=== PATIENT | female | born 1990 | race African-American/Black ===

== ENCOUNTER 2024-07-22 04:07 | Emergency (ER) | payer MEDICAID, SELFPAY ==
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
[2024-07-22 04:37] VITALS: BP 136/90; PULSE 110; RESP 16; TEMP 37; O2SAT 98; BMI 46.6
[2024-07-22 04:55] VITALS: BP 136/90; PULSE 98; RESP 18; TEMP 37; O2SAT 98
== END 2024-07-22 05:09 | disposition home or self-care (01) ==
PROVIDERS: Emergency Provider Emergency Medicine
DX: F10.920 Alcohol use, unspecified with intoxication, uncomplicated (principal); Y90.9 Presence of alcohol in blood, level not specified
CPT/HCPCS: 99282; 99283

== ENCOUNTER 2024-07-22 22:01 | Emergency (ER) | payer MEDICAID, SELFPAY ==
[2024-07-22 22:04] VITALS: BP 121/81; PULSE 100; RESP 16; TEMP 36.2; O2SAT 97; BMI 46.2
--- NOTE | 2024-07-22 22:43 | PC.NURSE ---
Addendum entered by Shadia Carrera LPN 07/22/24 22:46: pt reports UTD of tetanus from facial lac Original Note: pt presents to dept with c/o lifted right great toenail. toenail sustained a previous injury with a metal door- yesterday pt struck toenail again causing it to lift from the nail bed. no active bleeding at this time. CSM in tact. pt reports cleaning to affected area with warm water and peroxide.
--- NOTE | 2024-07-22 23:38 | ED.GENADULT ---
HPI - General Adult General Chief complaint: General Medical Stated complaint: broken toe nail Time Seen by Provider: 07/22/24 23:38 Source: patient Mode of arrival: ambulatory Limitations: no limitations History of Present Illness ED Provider: Dr. Alessandro Barnard HPI narrative: 34-year-old female with no significant past medical history who presents emergency department for evaluation of injury to her right great toenail. She states approximately 1 month ago she injured the nail and caused it to slightly lift. She states that prior to coming to emergency department she opened the door onto or right great toe which caused her toenail to partially avulse. She states that she is able to walk but does have had pain with any movement of her toenail. There is bleeding from 1 of the toenail as well. Related Data Previous Rx's ?Medication ?Instructions ?Recorded bacitracin 500 unit/gram topical 1 appl topical BID 7 days #28 grams 07/23/24 ointment Allergies Allergy/AdvReac Type Severity Reaction Status Date / Time No Known Allergies Allergy Verified 07/22/24 22:06 [facility] Past Medical History Medical History (Updated 07/23/24 @ 00:52 by Alessandro Barnard MD) Alcohol intoxication Social History Social History Advance Directives: No Advance Directives Information Provided: No Do you have a plan to hurt others: No Plan Patient : No Physical Exam ED Vital Signs: Vital Signs - 24 hr 07/22/24 22:04 07/23/24 01:20 Temperature 97.2 F 98.2 F Pulse Rate 100 77 Respiratory Rate 16 18 Blood Pressure 121/81 120/68 Pulse Oximetry 97 99 Oxygen Delivery Method Room Air BMI result Body Mass Index 46.2 Vital signs were normal exam: Right foot: The patient's right great toenail is partially avulsed but still attached. There is bleeding underneath the nail. The toe is neurovascularly intact. Medications Administered Discontinued Medications Generic Name Dose Route Start Last Admin Trade Name Freq PRN Reason Stop Dose Admin Lidocaine HCl 5 ml 07/23/24 00:03 07/23/24 00:33 Lidocaine Hcl 1 % Mpf 5 Ml Vial INFILTRATI 07/23/24 00:04 5 ml ONCE STA Administration Lidocaine HCl 5 ml 07/23/24 00:03 07/23/24 00:33 Lidocaine Hcl 1 % Mpf 5 Ml Vial INFILTRATI 07/23/24 00:04 5 ml ONCE STA Administration Procedures Procedure Narrative Procedure Narrative: Right great toenail removal: The toenail is partially avulsed but still attached. I did discuss removal procedure with the patient and she gave me informed verbal consent. The right great toenail was prepped with Betadine and then using 8 cc of 1% lidocaine she was given a digital block to the toe. After 10 minutes the patient had good anesthesia of the toe. I then applied a hemostat to the toe and with gentle pressure was able to easily remove the toenail. The patient experienced no pain. There was slight bleeding of the nailbed with no injury of the nailbed. The nail bed was dressed with bacitracin and a nonstick dressing was applied. Medical Decision Making Medical Decision Making MDM Narrative: 34-year-old female with no significant past medical history who presents to the emergency department for evaluation of injury to the right great toenail. Vital signs were normal. Physical examination did reveal a partially avulsed toenail never required removal. Patient was given a digital block and I was able to easily remove the toenail. There was bleeding from the nail bed. Nail bed was covered with bacitracin and nonstick dressing. Patient was advised to take Tylenol and ibuprofen for pain. She was given printed and verbal instructions and discharged home. Admission/Observation Consideration of admission/observation: Escalation of care including admission/observation considered ( No) Prescription Management I considered prescription management with: Antibiotic ( bacitracin antibiotic ointment) Discharge Plan Discharge Clinical Impression: Injury of great toenail Patient Disposition: Home, Self-Care Instructions: Nail Removal (ED) Additional Instructions: Your toenail was removed and you have some slight bleeding in the nailbed. Apply bacitracin twice a day for 2 weeks Keep the nail bed covered with gauze until the bleeding stops, this might take 2-3 days. Watch for signs of infection which include redness, swelling, drainage of pus, red streaks going away from the toe Take ibuprofen 200 mg pills, 2 pills every 6 hours as needed for pain or fever. Take Tylenol (acetaminophen) 500 mg pills, 2 pills every 6 hours as needed for pain or fever. Follow-up with your doctor in 2 days. Please return to the emergency department if your symptoms get worse or if you develop any symptoms that are concerning to you. Prescriptions: New bacitracin 500 unit/gram ointment 1 appl topical BID 7 Days Qty: 28 0RF Interventions: ED Discharge Assessment Last Done: 07/23/24 01:20 Discharge Date/Time: 07/23/24 01:20 Print Language: Haitian
[2024-07-23] MEDS: Lidocaine HCl 1 % MPF 5 ML VIAL INFILTRATI ×2 (00:33)
[2024-07-23 01:20] VITALS: BP 120/68; PULSE 77; RESP 18; TEMP 36.8; O2SAT 99
== END 2024-07-23 01:20 | disposition home or self-care (01) ==
PROVIDERS: Emergency Provider Emergency Medicine Emergency Medical Services
DX: S91.201A Unspecified open wound of right great toe with damage to nail, initial encounter (principal); W20.8XXA Other cause of strike by thrown, projected or falling object, initial encounter; M79.674 Pain in right toe(s); Y93.89 Activity, other specified; Y92.9 Unspecified place or not applicable; Y99.9 Unspecified external cause status
CPT/HCPCS: 11730; 99284

== ENCOUNTER 2025-08-08 23:30 | Emergency (ER) | payer MEDICAID, SELFPAY ==
--- OUTSIDE RECORDS SUMMARY | 2016-04-03 10:45 | XMS_ITS | Continuity of Care Document ---
Author Organization [facility] vices Address [address] [place] [address] Phone Care Team Providers Care Professor Of Rhetoric Name Role Phone Unavailable Unavailable Unavailable Allergies, [...] Copied on Encounter OFFICE/OUTPA TIENT VISIT, EST [facility], [address] [place], [address], [place] tel:[phone] [facility] Test (chief complaint) [id number] edna nov 21 (chief complaint) Encounter for test, result positive No Information OFFICE/OUTPA TIENT VISIT, [facility], [address] [place], [address], [place] tel:[phone] [facility] Test (chief complaint) fatique (chief complaint) STD testing (chief complaint) Encounter for test, result negativeEncounter for STD screeningFatigue, unspecified type No Information OFFICE/OUTPA TIENT VISIT, [facility], [address] [place], [address], [place] tel:[phone] [facility] Adult Medicine Throwing Up/Dizzy since Thursday (chief complaint) Encntr for general adult medical exam w/o abnormal findingsVomiting, nausea presence unspecified, unspecified intactability, vomiting of unspecified typeEncounter for test, result negative No Information Family History Family Member Type Diagnosis Age At Onset No Information Payers Payer name Insurance type Covered libertarian ID Minnie salcedo(s) PARMINDER Aragon [id number] Social History Type Description Quantity Date Captured [...] LMP. EDNA 11/21/16. Noticed some spotting on 03/17/[id number] - [place]ivered [place]09/07/2006: full term without [id number]/03/2007: full term SVDwithout complications03/26/2010: full term without complicationsPMHx: Asthma, obesityPSHx: deniesMedications: AlbuterolAll: NKDADenies toxic habits. [id number] edna nov 21 (chief complaint) Reason For Referral Reason For Referral No Information History Of Present Illness Encounter Date Complaint History Of Prese nt Illness Test LMP was 02/15/20. Context: confirmed by home test on 03/29/2016. The patient had 3 previous pregnancies. Associated symptoms include breast tenderness, spotting. Pertinent negatives include pelvic pain. Additional information: Regular monthly menses. EGW 6w6d by LMP. EDNA 11/21/16. Noticed some spotting on 03/17/[id number] - [place]ivered [place]09/07/2006: full term without [id number]/03/2007: full term without complications03/26/2010: full term without complicationsPMHx: Asthma, obesityPSHx: deniesMedications: AlbuterolAll: NKDADenies toxic habits. [id number] edna nov 21 evie States has hx of anemia. Has had recent viral GI bug. Asking for blood work. Reviewed that she will need to f/u with Adult medicine. Will order labs today. STD testing Asking for HIV t est Test Context: Pregnan cy not confirmed by [...] contraception as she may want to conceive.. Throwing Up/Dizzy si nce Thursday (comments) 26 [...] this letter for her but instructed her external relations manager to check the contents of the bottle [...] the office today7) Please follow up with Inclusion Paraeducator for spotting during your period if this is not normal for you. Related to Vomiting, nausea presence unspecified, unspecified intactability, vomiting of unspecified type Assessments Type Assessment Date assessment Encounter for test, re sult positive Mental Status Date Cognitive Assessment Orientation - [place] ed to time, place, person, situation. Patient Care Teams Name Effective Dates (start - stop) Status Members No Information
--- NOTE | ~2025-08-08 | XR_ITS ---
CLINICAL HISTORY: left great toe injury 3 view left great toe Comparison: None provided Findings: Bones intact. No dislocations. No significant arthritic change. No erosions. No radiopaque foreign body. IMPRESSION: 1. No acute findings This document has been electronically signed by: Baldo Wolf MD on 08/09/2025 01:42:16
[2025-08-08 23:34] VITALS: BP 128/62; PULSE 95; RESP 19; TEMP 36.6; O2SAT 100; BMI 46.7
--- NOTE | 2025-08-09 00:04 | ED.LOWEXIN ---
HPI - Extremity Injury (Lower) General Chief Complaint: Extremity Injury, Lower Stated Complaint: stubbed toe Time Seen by Provider: 08/09/25 00:03 Source: patient Mode of arrival: ambulatory Limitations: no limitations History of Present Illness ED Provider: Pedro Pablo ROA HPI Narrative: The patient is a 35-year-old female presenting to the ED for evaluation of left great toe pain after she stubbed it on a leg of a dining room table yesterday. The patient reports pain with walking and palpation, denies distal paresthesias. The patient noted today that the toenail is slightly lifted and presents to the ED for evaluation. Patient reports she has had a similar injury to the right great toe previously which required removal of the toenail. The patient denies other injury. Related Data Previous Rx's ?Medication ?Instructions ?Recorded bacitracin 500 unit/gram topical 1 appl topical BID 7 days #28 grams 07/23/24 ointment clobetasol 0.05 % topical ointment 1 appl topical BID 2 weeks #30 08/09/25 grams Allergies Allergy/AdvReac Type Severity Reaction Status Date / Time No Known Allergies Allergy Verified 08/08/25 23:36 Review of Systems Review of Systems: Yes all other systems are reviewed and are negative PMFSH Past Medical History Medical History (Updated 08/09/25 @ 00:31 by Pedro Pablo Guzmán PA-C) Alcohol intoxication Social History Social History Advance Directives: No Advance Directives Information Provided: Yes Do you have a plan to hurt others: No Plan Physical Exam Vital Signs: Vital Signs: Last Vital Signs Temp 97.9 F 08/08/25 23:34 Pulse 95 08/08/25 23:34 Resp 19 08/08/25 23:34 BP 128/62 08/08/25 23:34 Pulse Ox 100 08/08/25 23:34 O2 Del Method Room Air 08/08/25 23:34 BMI result Body Mass Index 46.7 CONSTITUTIONAL: The patient appears non-toxic, well nourished and in no acute distress. Vital signs as documented. HEAD: Atraumatic, normocephalic. EYES: EOMs grossly intact, pupils equal, conjunctiva clear, no exudate. ENT: Nares patent, no discharge. Airway patent, no audible stridor, visible mucosa is pink and moist without noted lesions. NECK: trachea is midline, no obvious masses or gross abnormalities. CHEST: Symmetric movement, normal appearance. LUNGS: Non-labored work of breathing. CARDIAC: No evidence of hypoperfusion. ABDOMEN: Nondistended, no obvious injury. : Deferred. EXTREMITIES: There is contusion and swelling noted to the left great toe with slight lifting of the great toenail and mild disruption of the nail from the lateral cuticle, no obvious subungual hematoma. Distal CSM is intact, left great toe is tender to palpation without associated crepitus. Moves all other extremities spontaneously without reported pain. No other obvious injury or deformity noted. NEURO: Alert and oriented x3, CN II-XII appear grossly intact. Cerebellar Functioning grossly intact. Speech clear and appropriate. SKIN: Warm, dry, color appropriate. No rashes or lesions noted. Medications Administered Discontinued Medications Generic Name Dose Route Start Last Admin Trade Name Freq PRN Reason Stop Dose Admin Lidocaine HCl 5 ml 08/09/25 00:09 08/09/25 00:21 Lidocaine Hcl 1 % Mpf 5 Ml Vial INFILTRATI 08/09/25 00:10 5 ml ONCE ONE Administration Medical Decision Making Medical Decision Making MDM Narrative: 12:20 AM 08/09/2025 (Rosalina ROA): The patient is a 35-year-old female presenting to the ED for evaluation of left great toe pain after she stubbed it on a leg of a dining room table yesterday. The patient reports pain with walking and palpation, denies distal paresthesias. The patient noted today that the toenail is slightly lifted and presents to the ED for evaluation. Patient reports she has had a similar injury to the right great toe previously which required removal of the toenail. The patient denies other injury. Patient's exam reveals slight lifting of the great toe with some mild disruption of the lateral aspect of the cuticle. Distal CSM is intact. Mild contusion, no other injury, no subungual hematoma. The patient will be treated with a digital block, we will place nail back under the lateral cuticle and apply Dermabond to secure in place. Of note patient is also requesting a refill of her clobetasol for eczema, we will provide. Admission/Observation Consideration of admission/observation: Escalation of care including admission/observation considered Discharge Plan Discharge Clinical Impression: Fracture of toe, Avulsed toenail Patient Disposition: Home, Self-Care Instructions: Toe Fracture (ED), Nail Avulsion (ED) Additional Instructions: Thank you for choosing [facility] Emergency Department for your care today. At this time there is no indication for admission to the hospital or continued ED observation, and it is safe to discharge you home. Your stubbed toe from yesterday resulted in a fracture of your toe. Please wear the postoperative shoe provided for increased comfort and follow up with the Orthopedics office for re-evaluation. Your injury also resulted in an avulsion of the toenail, the toenail was placed back under the cuticle today and secured with the glue. While the nail may still eventually fall off, the replacement and securement of the nail within the cuticle will allow the cuticle to remain open and increase the likelihood of normal regrowth of new nail. The glue will wear off with normal showering in the next 5-7 days, it does not require removal. You may take alternating (staggered) doses of ibuprofen 600mg and Tylenol 1000mg every 4 hours as needed for any additional pain. Please rest and elevate the injured area, and apply ice for 20 minutes every hour. Please also follow up with your primary care physician for re-evaluation, additional management of your symptoms, and continued preventative care. If you do not have a primary care physician, please call the [facility] at [phone] to establish a new primary care physician. While waiting to establish your new primary care physician, you can call our Walk[facility]in [facility] at [phone] for non-emergency needs. Please return to the emergency department if you develop a severe or sudden change in your symptoms, a fever over 100.4 that does not improve with Tylenol or Ibuprofen, recurrent vomiting, or any other new or worsening symptoms or concerns. Prescriptions: New clobetasol 0.05 % ointment 1 appl topical BID 14 Days Qty: 30 0RF No Action bacitracin 500 unit/gram ointment 1 appl topical BID 7 Days Qty: 28 0RF Referrals: [facility] [place] [facility] [Provider Group] Clinical Impression: Fracture of toe; Avulsed toenail Print Language: Jordanian
[2025-08-09] MEDS: Lidocaine HCl 1 % MPF 5 ML VIAL INFILTRATI (00:21)
--- OUTSIDE RECORDS SUMMARY | 2025-08-09 00:37 | XMS_ITS | Clinical Summary ---
Author Organization [address] Address [address] [place] [address] Care Team Providers Care Test Inspection Engineer Name Role Phone Glenn Alvarado DO Primary Care Provider [phone] Allergies Active Allergy Reactions Criticality Noted Date Comments Apple Anaphylaxis,Tongue Swelling,Wheezing High 11/22/2017 Most fresh fruits cause similar reactions Banana Tongue Swelling,Wheezing High 11/22/2017 Most fresh fruits cause similar reactions Medications ibuprofen (ADVIL,MOTRIN) 600 MG tablet Take 1 tablet (600 mg total) by mouth every 6 (six) hours as needed.. 30 tablet 00 8 Active ipratropium-alb uterol (DUO-NEB) 0.5 mg-3 mg(2.5 mg base)/3 mL nebulizer solution Take 3 mLs by nebulization every 6 (six) hours as needed for Wheezing 75 mL 9 Active inhalational spacing device (AEROCHAMBER) inhaler Use as directed. 1 each 9 Active albuterol sulfate (PROAIR HFA) 90 mcg/actuation HFA aerosol inhaler Inhale 2 puffs into the lungs every 4 (four) hours as needed for wheezing or shortness of breath. 1 Inhaler 1 0 Active albuterol (PROVENTIL, VENTOLIN) 2.5 mg /3 mL (0.083 %) nebulizer solution Take 3 mLs by nebulization every 4 (four) hours as needed for shortness of breath or wheezing. 75 mL 1 0 Active budesonide-form oteroL (SYMBICORT) 80-4.5 mcg/actuation HFA aerosol inhaler Inhale 2 puffs into the lungs 2 (two) times daily. 1 Inhaler 1 0 Active triamcinolone (KENALOG) 0.5 % cream Apply topically 3 (three) times daily. Do not use on face or genital area 15 g 1 Active Active Problems Problem Noted Date Diagnosed Date Alcohol abuse with intoxication, uncomplicated 1 Cocaine abuse 09/07/2021 Passive suicidal ideations-NOW RESOLVED 09/07/20 21 History of posttraumatic stress disorder (PTSD) 09/07/2021 History of depression 09/07/2021 12/26/2017 Bacterial vaginosis 12/17/2017 Genital herpes simplex 12/17/2017 Anxiety 11/22/2017 Asthma 11/22/2017 Heartburn 11/22/2017 Herpes simplex 11/22/2017 Patient currently 10/29/2017 Chronic eczema 01/25/2016 Transient insomnia 01/23/2016 Screening examination for pulmonary tuberculosis 01/23/2016 Chlamydial infection 04/23/2014 Blood in urine 08/23/2011 Immunization counseling 11/23/2007 Immunizations Immunization Administration Dates Next Due TB Screening (PPD/Quantiferon) 01/23/2016 Family History Medical History Relation Name Comments No Known Problems Father No Known Problems Mother Relation Name Status Comments Brother Alive Daughter Alive Father Alive Maternal Grandmother Alive Mother Alive Son Alive Social History Tobacco Use Types Packs/Day Years Used Date Smoking Tobacco: Never Smokeless Tobacco: Never Alcohol Use Standard Drinks/Week Comments Yes 2 (1 standard drink = 0.6 oz pur e alcohol) Education Answer Date Recorded What is the highest level of school you have completed or the highest degree you have received? High school graduate 09/07/2021 Comments No Sex and Gender Information Value Date Recorded Sex Assigned at Female 03/03/2021 1:38 PM EDT Legal Sex Female 9:36 AM EST Gender Identity Female 03/03/2021 1:38 PM EDT Sexual Orientation Straight 03/03/2021 1: 38 PM EDT Occupation Industry Job Start Date Job End Date unemployed Not on file Not on file Not on file Last Filed Vital Signs Vital Sign Reading Time Taken Comments Blood Pressure 143/82 03/04/2025 2:34 PM EDT Pulse 92 03/04/2025 2:34 PM EDT Temperature 36.4 C (97.6 F) 03/04/2025 2:34 PM EDT Respiratory Rate 18 03/04/2025 2:34 PM EDT Oxygen Saturation 100% 03/04/2025 2:34 PM EDT Inhaled Oxygen Concentration - - Weight 108.9 kg (240 lb) 03/04/2025 2:32 PM EDT Height 154.9 cm (5' 1 ) 03/03/2021 1:33 AM EDT Body Mass Index 45.35 03/03/2021 1:33 AM EDT Plan of Treatment Health Maintenance Due Date Last Done Comments Hepatitis C screening 2007 Pneumococcal Vaccine (2 - 49 years) (1 of 2 - PCV) 02/13/2008 Covid-19 vaccine series (2 - 2024- season) 2025 11/27/2021 Influenza vaccine 07/24/2025 10/29/2017 Cervical cancer screening 01/16/2026 01/16/2021 Tetanus adult (Td q 10,TDAP once) 10/29/2027 10/29/2017 RSV Immunization (1 - 1-dose 75+ series) 02/13/2064 HIV screening Completed 11/03/2017, 11/03/2017 Meningococcal B Vaccine Aged Out No l onger eligible based on patient's age to complete this topic Meningococcal Vaccine Aged Out No memo kameron eligible based on patient's age to complete this topic Goals Goal Patient Goal Type Associated Problems Recent Progress Patient-Stated? Author Cut out extra servings Diet No Michelle Wilkerson RD DSME: REDUCING RISKS Lifestyle No Michelle Wilkerson RD Note: Get preventative help 4: Sure I can Learn to have a safe 4: Sure I can Follow meal plan 4: Sure I can DSME: MONITORING Result Component No Michelle Wilkerson RD Note: Check my blood sugar more often 4: Sure I can Miss fewer blood sugar checks 4: Sure I can Do my blood sugar checks on time more often 4: Sure I can Procedures Procedure Name Priority Date/Time Associated Diagnosis Comments HIV-1/HIV-2 ANTIBODY/ANTIGEN SCREEN W/REFLEX ( GH LMW [facility]) Routine 11/03/2017 1:11 PM EST Encounter for supervision of normal in second trimester, unspecified from Last 3 Months or Most Recently Relevant to Health Maintenance Results * HIV-1/HIV-2 antibody/antigen screen w/reflex ([facility] LMW [facility]) (11/03/2017 1:11 PM EST) HIV 1 and 2 Antibody/Antige n Screen Negative Negative 11/03/2017 3:01 PM EST [facility] Comment: If clinical concern for HIV infection remains, then re-screen at an appropriate interval. Patients may be non-reactive if p24 antigen or HIV antibodies have not yet developed. Blood specimen (specimen) Venipuncture / Unknown 11/03/2017 1:11 PM EST 11/03/2017 1:32 PM EST us Debbi Man SOLID WASTE ANALYST LAB BLOOD ORDERABLES Final Resul t [facility] [address] [place] [address] from Last 3 Months or Most Recently Relevant to Health Maintenance Insurance [place] Advance Directives * Full ACLS (Latest Code Status on File) Date Activated Date Inactivated Comments 12/26/2017 12:57 AM 12/29/2017 2:22 AM Question Answer Comments With Whom was the Code Status Discussed? Patient * Full ACLS Date Activated Date Inactivated Comments 12/26/2017 12:20 AM 12/26/2017 12:57 AM * Full ACLS Date Activated Date Inactivated Comments 11/22/2017 2:09 AM 11/25/2017 10:51 PM Care Teams Test Inspection Engineer Relationship Specialty Start Date End Date Glenn Alvarado DO [address] [facility] [address] [place] [address] PCP - General Family Medicine 05/31/17
--- OUTSIDE RECORDS SUMMARY | 2025-08-09 00:37 | XMS_ITS | Encounter Summary ---
Author Organization [facility] and [facility] Address [address] [place] [address] Care Team Providers Care Wire Stretcher Name Role Phone Glenn Alvarado DO Primary Care Provider [phone] Encounter Details Date Type Department Care Team (Latest Contact Info) Description 11/03/2017 Transcribed Orders [facility] DRAW STATION [facility] [address] [place], [place] [phone] Debbi Mna, LORRAINE [address] [phone] Encounter for supervision of normal in second trimester, unspecified (Primary Dx) Social History Tobacco Use Types Packs/Day Years Used Date Smoking Tobacco: Never Smokeless Tobacco: Never Alcohol Use Standard Drinks/Week Comments Yes 2 (1 standard drink = 0.6 oz pur e alcohol) Comments Unknown Sex and Gender Information Value Date Recorded Sex Assigned at Female 03/03/2021 1:38 PM EDT Legal Sex Female 9:36 AM EST Gender Identity Female 03/03/2021 1:38 PM EDT Sexual Orientation Straight 03/03/2021 1: 38 PM EDT documented as of this encounter Plan of Treatment Not on file documented as of this encounter Procedures Procedure Name Priority Date/Time Associated Diagnosis Comments ZZZC.TRACHOMATIS / N.GONORRHOEAE, NAAT ([facility]) Routine 11/03/2017 1:17 PM EST Encounter for supervision of normal in second trimester, unspecified ZZZURINALYSIS WITH MICROSCOPIC (L LMW Q) Routine 11/03/2017 1:17 PM EST Encounter for supervision of normal in second trimester, unspecified URINE CULTURE Routine 11/03/2017 1:17 PM EST Encounter for supervision of normal in second trimester, unspecified HIV-1/HIV-2 ANTIBODY/ANTIGEN SCREEN W/REFLEX (BH GH LMW YH) Routine 11/03/2017 1:11 PM EST Encounter for supervision of normal in second trimester, unspecified 1 HOUR GLUCOSE CHALLENGE (BH GH LMW) Routine 11/03/2017 1:11 PM EST Encounter for supervision of normal in second trimester, unspecified CBC WITH AUTO DIFFERENTIAL Routine 11/03/2017 1:11 PM EST Encounter for supervision of normal in second trimester, unspecified TREPONEMA PALLIDUM (SYPHILIS) ANTIBODY W/REFLEX Routine 11/03/2017 1:11 PM EST Encounter for supervision of normal in second trimester, unspecified ABO/RH Routine 11/03/2017 1:11 PM EST Encounter for supervision of normal in second trimester, unspecified RUBELLA ANTIBODY, IGG (BH GH L LMW YH) Routine 11/03/2017 1:11 PM EST Encounter for supervision of normal in second trimester, unspecified HEPATITIS B SURFACE ANTIGEN (BH GH L LMW YH) Routine 11/03/2017 1:11 PM EST Encounter for supervision of normal in second trimester, unspecified CBC AND DIFFERENTIAL Routine 11/03/2017 1:11 PM EST Encounter for supervision of normal in second trimester, unspecified HEMOGLOBINOPATHY EVALUATION SCREENING Routine 11/03/2017 1:11 PM EST Encounter for supervision of normal in second trimester, unspecified ANTIBODY SCREEN (BH GH L LMW YH) Routine 11/03/2017 1:11 PM EST Encounter for supervision of normal in second trimester, unspecified documented in this encounter Results * C.trachomatis / N.gonorrhoeae, PCR ([facility]) (11/03/2017 1:17 PM EST) Chlamydia DNA Probe Negative Negative 11/03/2017 3:13 PM EST [facility] Neisseria gonorrhoeae, DNA Probe Negative Negative 11/03/2017 3:13 PM EST [facility] Culture URINE SPECIMEN / Unknown Venipuncture / Unknown 11/03/2017 1:17 PM EST 11/03/2017 1:38 PM EST Debbi Man APRN MICROBIOLOGY - GENERAL ORDERABLE S Final Result Performing Organization Address [facility] [place] [address] * Urine culture (11/03/2017 1:17 PM EST) Pathologist [facility] Urine Culture, Routine Less than 10,000 CFU/mL. Clinical significance is unlikely for organism(s) present in quantities of less than 10,000 CFU/mL. 11/04/2017 9:02 AM EST [facility] Culture URINE SPECIMEN OBTAINED BY CLEAN CATCH PROCEDURE / Unknown Venipuncture / Unknown 11/03/2017 1:17 PM EST 11/03/2017 2:05 PM EST Debbi Man APRN MICROBIOLOGY - GENERAL ORDERABLE S Final Result Performing Organization Address [facility] Co de Phone Number [address] [address] * (ABNORMAL) Urinalysis with microscopic (GH L LMW Q) (11/03/2017 1:17 PM EST) Color, UA Yellow Yellow 11/03/2017 1:43 PM EST [facility] Clarity, UA Clear Clear 11/03/2017 1:43 PM EST [facility] pH, UA 6.5 4.6 - 7.4 11/03/2017 1:43 PM [facility] Specific [place], UA 1.015 1.003 - 1.035 11/03/2017 1:43 PM [facility] Protein, UA Trace(A) Negative mg/dL 11/03/2017 1:43 PM [facility] Glucose, UA 4+(A) Negative mg/dL 11/03/2017 1:43 PM [facility] Nitrite, UA Negative Negative 11/03/2017 1:43 PM [facility] Leukocytes, UA Negative Negative [place]/uL 11/03/2017 1:43 PM [facility] Blood, UA Negative Negative mg/dL 11/03/2017 1:43 PM [facility] Ketones, UA Negative Negative mg/dL 11/03/2017 1:43 PM [facility] Bilirubin, UA Negative Negative mg/dL 11/03/2017 1:43 PM [facility] Urobilinogen, UA <2 <2 mg/dL 11/03/2017 1:43 PM [facility] RBC/HPF, UA 2 0 - 3 /HPF 11/03/2017 1:43 PM [facility] WBC/HPF, UA 1 0 - 5 /HPF 11/03/2017 1:43 PM [facility] Urine Squamous Epithelial Cells, UA 4 0 - 5 /HPF 11/03/2017 1:43 PM [facility] Urine specimen (specimen) Venipuncture / Unknown 11/03/2017 1:17 PM EST 11/03/2017 1:34 PM EST us Debbi Man APRN URINE ORDERABLES Final Result [facility] [address] [place] [address] * (ABNORMAL) CBC auto differential (11/03/2017 1:11 PM EST) WBC 9.52 4.00 - 10.00 x1000/ L 11/03/2017 1:38 PM [facility] RBC 3.96(L) 4.00 - 5.20 M/ L 11/03/2017 1:38 PM [facility] Hemoglobin 11.6 11.0 - 15.0 g/dL 11/03/2017 1:38 PM [facility] Hematocrit 34.3 34.0 - 45.0 % 11/03/2017 1:38 PM [facility] MCV 86.6 79.0 - 99.0 fL 11/03/2017 1:38 PM [facility] MCH 29.3 27 - 33 pg 11/03/2017 1:38 PM [facility] MCHC 33.8 32.0 - 36.0 g/dL 11/03/2017 1:38 PM [facility] RDW-CV 13.2 11.5 - 14.5 % 11/03/2017 1:38 PM [facility] Platelets 288 140 - 400 x1000/ L 11/03/2017 1:38 PM [facility] MPV 9.4 7.5 - 11.5 fL 11/03/2017 1:38 PM [facility] Neutrophils 71.3(H) 36.0 - 66.0 % 11/03/2017 1:38 PM [facility] Lymphocytes 19.3(L) 25.0 - 45.0 % 11/03/2017 1:38 PM [facility] Monocytes 4.3 0.0 - 12.0 % 11/03/2017 1:38 PM [facility] Eosinophils 4.6(H) 0.0 - 4.0 % 11/03/2017 1:38 PM [facility] Basophil 0.3 0.0 - 3.0 % 11/03/2017 1:38 PM [facility] Immature Granulocytes 0.2 0.0 - 1.0 % 11/03/2017 1:38 PM [facility] nRBC 0.0 0.0 - 5.0 % 11/03/2017 1:38 PM [facility] ANC (Abs Neutrophil Count) 6.78(H) 1.40 - 6.60 x 1000/ L 11/03/2017 1:38 PM [facility] Absolute Lymphocyte Count 1.84 1.00 - 4.50 x 1000/ L 11/03/2017 1:38 PM EST [facility] Monocyte Absolute Count 0.41 0.00 - 1.20 x 1000/ L 11/03/2017 1:38 PM EST [facility] Eosinophil Absolute Count 0.44 0.00 - 0.45 x 1000/ L 11/03/2017 1:38 PM EST [facility] Basophil Absolute Count 0.03 0.0 - 0.3 x 1000/ L 11/03/2017 1:38 PM EST [facility] Absolute Immature Granulocyte Count 0.02 0.00 - 0.10 x 1000/ L 11/03/2017 1:38 PM EST [facility] Blood specimen (specimen) Venipuncture / Unknown 11/03/2017 1:11 PM EST 11/03/2017 1:34 PM EST Debbi Man APRN LAB BLOOD ORDERABLES Final Resul t Performing Organization Address [facility] [place] [address] * (ABNORMAL) 1 Hour glucose challenge ( GH LMW) (11/03/2017 1:11 PM EST) Glucose Challenge 1 Hour 190(H) 51 - 140 mg/dL 11/03/2017 2:00 PM EST [facility] Blood specimen (specimen) Venipuncture / Unknown 11/03/2017 1:11 PM EST 11/03/2017 1:32 PM EST Narrative [facility] - 11/03/2017 2:00 PM EST Per [employer] guidelines, a screening value of greater than 140 mg/dL may indicate the need for a diagnostic 3 hr OGTT (100 mg load). Debbi Man APRN LAB BLOOD ORDERABLES Final Resul t Performing Organization Address City/[facility]/ZIP Co de Phone Number [facility] [address] [place] [address] * Hemoglobinopathy evaluation (11/03/2017 1:11 PM EST) Hemoglobin A 97.3 94.0 - 100.0 % 11/06/2017 2:19 PM EST [facility] Comment: NORMAL Hgb A and A2. There is no evidence for any abnormal hemoglobin; for example, the most common abnormal hemoglobins are not present. Results have been REVIEWED BY TECHNOLOGIST ONLY. Hemoglobin A2 2.7 0.0 - 4.0 % 11/06/2017 2:19 PM EST [facility] Hemoglobin F <0.1 0.0 - 2.0 % 11/06/2017 2:19 PM EST [facility] Blood specimen (specimen) Venipuncture / Unknown 11/03/2017 1:11 PM EST 11/03/2017 1:32 PM EST Debbi Man [facility] LAB BLOOD ORDERABLES Final Resul t Performing Organization Address City/[facility]/ZIP Co de Phone Number [facility] [address] [place] [address] * Hepatitis B surface antigen (BH GH L LMW YH) (11/03/2017 1:11 PM EST) Hepatitis B Surfac Antigen Negative Negative 11/03/2017 2:27 PM EST [facility] Blood specimen (specimen) Venipuncture / Unknown 11/03/2017 1:11 PM EST 11/03/2017 1:32 PM EST Debbi Man INSTRUMENTATION MANAGER LAB BLOOD ORDERABLES Final Resul t [facility] [address] [place] [address] * Rubella antibody, IgG (BH GH L LMW YH) (11/03/2017 1:11 PM EST) Rubella Antibody, IgG Positive Positive 11/03/2017 2:27 PM EST [facility] Rubella Antibody, IgG Interval 28.8 >=10.0 Index 11/03/2017 2:27 PM EST [facility] Blood specimen (specimen) Venipuncture / Unknown 11/03/2017 1:11 PM EST 11/03/2017 1:32 PM EST Narrative [facility] - 11/03/2017 2:27 PM EST Reference Interval Interpretation: < 5.0 IU/mL = Negative, No evidence of immunity or exposure to Rubellaa demonstrated. >=5.0 IU/ml and <=9.9 IU/mL = Indeterminate, Repeat testing in 10-14 days may be helpful in resolving. >=10.0 IU/ml = Positive, This may indicate a current or past exposure or immunization to Rubella Virus. A negative result does not rule out acute infection and may be seen in infected patients during the incubation period or early stages of infection. If clinical suspicion remains, then repeat testing is advised in 1-2 weeks. Indeterminate results indicate a repeat testing in 1-2 weeks especially if clinically suspicious. A positive result generally indicates exposure to the pathogen or vaccination. Stage of disease cannot be differentiated. Diagnosis of infectious disease should not be based on a single test result rather than in conjunction with clinical findings, results of other diagnostic testing, and medical judgment. ProficiencyN LAB BLOOD ORDERABLES Final Resul t Performing Organization Address [facility] [place] [address] * HIV-1/HIV-2 antibody/antigen screen w/reflex ( GH LMW YH) (11/03/2017 1:11 PM EST) [facility] Signature HIV 1 and 2 Antibody/Antige n Screen Negative Negative 11/03/2017 3:01 PM EST [facility] Comment: If clinical concern for HIV infection remains, then re-screen at an appropriate interval. Patients may be non-reactive if p24 antigen or HIV antibodies have not yet developed. Blood specimen (specimen) Venipuncture / Unknown 11/03/2017 1:11 PM EST 11/03/2017 1:32 PM EST ProficiencyN LAB BLOOD ORDERABLES Final Resul t Performing Organization Address City/[facility]/ZIP Co de Phone Number [facility] [address] [place] [address] * ABO/Rh (11/03/2017 1:11 PM EST) ABORh A POSITIVE 11/03/2017 2:13 PM EST [facility] BLOOD [facility] Blood specimen (specimen) Venipuncture / Unknown 11/03/2017 1:11 PM EST 11/03/2017 1:21 PM EST [facility] - 11/03/2017 2:13 PM EST [place] [facility], [address] [place], [place] [id number] - Lab number [id number] [facility] BLOOD BANK TEST ORDERABLES Final Result Performing Organization Address City/[facility] Co de Phone Number [address] [phone] * Antibody screen (BH GH L LMW YH) (11/03/2017 1:11 PM EST) Pathologist [facility] Antibody Screen NEGATIVE 11/03/2017 2:[address] [facility] Blood specimen (specimen) Venipuncture / Unknown 11/03/2017 1:11 PM EST 11/03/2017 1:21 PM EST [facility] - 11/03/2017 2:12 PM EST [place] [facility], [address] [place], [place] [address] - Lab number [id number] [facility] BLOOD BANK TEST ORDERABLES Final Result Performing Organization Address City/[facility]/ZIP Co de Phone Number [address] [phone] * Treponema pallidum (syphilis) antibody w/reflex (11/03/2017 1:11 PM EST) Pathologist [facility] Treponema pallidum Ab Index <0.100 <0.9 Index 11/03/2017 3:54 PM EST [facility] Treponema pallidum Antibody Total, Serum Non-Reacti ve Non-Reacti ve 11/03/2017 3:54 PM EST [facility] Blood specimen (specimen) Venipuncture / Unknown 11/03/2017 1:11 PM EST 11/03/2017 1:32 PM EST us Debbi Man APRN LAB BLOOD ORDERABLES Final Resul t [facility] [address] [place] [address] documented in this encounter Visit Diagnoses Diagnosis Encounter for supervision of normal in second trimester, unspecified (HC CODE)- Primary documented in this encounter Additional Health Concerns Assessment Noted Time PHQ-9 Depression Total Score: 2 01/23/20 16 9:00 AM EST documented as of this encounter Care Teams Wire Stretcher Relationship Specialty Start Date End Date Glenn Alvarado DO [address] [place] [address] PCP - General Family Medicine 05/31/17 documented as of this encounter
--- OUTSIDE RECORDS SUMMARY | 2025-08-09 00:38 | XMS_ITS | Encounter Summary ---
Author Organization [facility] Address [address] [place] [address] Care Team Providers Care Assistant Manager Of Operations Name Role Phone Glenn Alvarado DO Primary Care Provider [phone] Encounter Details Date Type Department Care Team (Late st Contact Info) Description 12/02/2017 Lab Requisition [place] [facility] Specimens [address] [phone] Debbi Man APRN [address] [phone] Abscess of bursa of right hip Social History Tobacco Use Types Packs/Day Years Used Date Smoking Tobacco: Never Smokeless Tobacco: Never Alcohol Use Standard Drinks/Week Comments Yes 2 (1 standard drink = 0.6 oz pur e alcohol) Comments Yes Sex and Gender Information Value Date Recorded Sex Assigned at Female 03/03/2021 1:38 PM EDT Legal Sex Female 9:36 AM EST Gender Identity Female 03/03/2021 1:38 PM EDT Sexual Orientation Straight 03/03/2021 1: 38 PM EDT documented as of this encounter Plan of Treatment Not on file documented as of this encounter Procedures Procedure Name Priority Date/Time Associated Diagnosis Comments DEEP WOUND CULTURE ([facility] LMW YH) Routine 12/02/2017 11:30 AM EST Abscess of bursa of right hip documented in this encounter Results * (ABNORMAL) Deep wound culture ([facility] LMW YH) (12/02/2017 11:30 AM EST) Deep Wound Culture Multiple organisms recovered in addition to those reported. Further testing not routinely performed. Clinical correlation required. 12/04/2017 1:53 PM EST [facility] Deep Wound Culture 1+ Actinomyces neuii(A) 12/04/2017 1:53 PM EST [facility] Comment: The method used for this identification was matrix assisted laser desorption or MALDI. The test performance characteristics were determined by [facility]. This particular genus species identification has not been cleared or approved by the FDA. This test is for clinical purposes and should not be regarded as investigational or research Gram Stain 3+ WBC's 12/04/2017 1:53 PM EST [facility] Gram Stain 1+ Epithelial Cells 12/04/2017 1:53 PM EST [facility] Gram Stain 1+ Gram negative rods 12/04/2017 1:53 PM EST [facility] Gram Stain 1+ Gram positive cocci in pairs 12/04/2017 1:53 PM EST [facility] Culture SWAB FROM DEEP WOUND / Unknown 12/02/2017 11:30 AM EST 12/02/2017 4:42 PM EST Narrative [facility] - 12/04/2017 1:53 PM EST Routinely screened for anaerobes; reported if isolated. Sensitivity testing not performed on anaerobes. Organism Antibiotic Method Susceptibility Actinomyces neuii * * Debbi Man APRN MICROBIOLOGY - GENERAL ORDERABLE S Final Result [facility] [address] [place] [address] documented in this encounter Visit Diagnoses Diagnosis Abscess of bursa of right hip Other disorders of synovium, tendon, and bursa documented in this encounter Additional Health Concerns Assessment Noted Time PHQ-9 Depression Total Score: 2 01/23/20 16 9:00 AM EST documented as of this encounter Care Teams Assistant Manager Of Operations Relationship Specialty Start Date End Date Glenn Alvarado DO [address] [facility] [address] [place] [address] PCP - General Family Medicine 05/31/17 documented as of this encounter
--- OUTSIDE RECORDS SUMMARY | 2025-08-09 00:38 | XMS_ITS | Encounter Summary ---
Author Organization [facility] Address [address] [place] [address] Care Team Providers Care Shoemaker Custom Name Role Phone Glenn Alvarado DO Primary Care Provider Encounter Details Date Type Department Care Team (Late st Contact Info) Description 11/06/2017 Scanned Document [facility] [place] [address] [place], [place] [phone] Debbi Man APRN [address] [place] [address] Social History Tobacco Use Types Packs/Day Years [...] on file documented as of this encounter Visit Diagnoses Not on filedocumented in this encounter Additional Health Concerns Assessment Noted Time PHQ-9 Depression Total Score: 2 01/23/20 16 9:00 AM EST documented as of this encounter Care Teams Shoemaker Custom Relationship Specialty Start Date End Date Glenn Alvarado DO [address] [place] [phone] PCP - General Family Medicine 05/31/17 documented as of this encounter
--- OUTSIDE RECORDS SUMMARY | 2025-08-09 00:38 | XMS_ITS | Encounter Summary ---
Author Organization [facility] Address [address] [place] [phone] Care Team Providers Care Captain Fire Prevention [employer] Name Role Phone Glenn Alvarado DO Primary Care Provider Encounter Details Date Type Department Care Team (Late st Contact Info) Description 11/22/2017 Documentation Gynecology [address] [place] [phone] Idania Rhodes MD Social History Tobacco Use Types Packs/Day Years [...] documented as of this encounter Care Teams Captain Fire Prevention [employer] Relationship Specialty Start Date End Date Glenn Alvarado DO [address] [place] [phone] PCP - General Family Medicine 05/31/17 documented as of this encounter
--- OUTSIDE RECORDS SUMMARY | 2025-08-09 00:38 | XMS_ITS | Encounter Summary ---
Author Organization [facility] and [facility] Address [address] [place] [address] Care Team Providers Care Radiologist Diagnostic Name Role Phone Glenn Alvarado Primary Care Provider [phone] Encounter Details Date Type Department Care Team (Latest Contact Info) Description 12/08/2017 Transcribed Orders [facility] [address], [place] [phone] Marlene Lopez, PUBLIC AREA ATTENDANT [address] [place] [phone] Hematuria, unspecified type (Primary Dx); Abnormal GGT test Social History Tobacco Use Types Packs/Day Years [...] Procedure Name Priority Date/Time Associated Diagnosis Comments ZZZURINALYSIS WITH MICROSCOPIC (L LMW Q) Routine 12/08/2017 1:34 PM EST Hematuria, unspecified type Abnormal GGT test URINE CULTURE Routine 12/08/2017 1:32 PM EST Hematuria, unspecified type Abnormal GGT test documented in this encounter Results * (ABNORMAL) Urinalysis with microscopic (GH L LMW Q) (12/08/2017 1:34 PM EST) Color, UA Yellow Yellow 12/08/2017 3:10 PM [facility] Clarity, UA Cloudy(A) Clear 12/08/2017 3:10 PM [facility] pH, UA 6.5 4.6 - 7.4 12/08/2017 3:10 PM [facility] Specific [place], UA 1.017 1.003 - 1.035 12/08/2017 3:10 PM [facility] Protein, UA 1+(A) Negative mg/dL 12/08/2017 3:10 PM [facility] Glucose, UA Negative Negative mg/dL 12/08/2017 3:10 PM [facility] Nitrite, UA Negative Negative 12/08/2017 3:10 PM [facility] Leukocytes, UA Moderate(A) Negative Monalisa/uL 12/08/2017 3:10 PM [facility] Blood, UA Moderate(A) Negative mg/dL 12/08/2017 3:10 PM [facility] Ketones, UA Negative Negative mg/dL 12/08/2017 3:10 PM [facility] Bilirubin, UA Negative Negative mg/dL 12/08/2017 3:10 PM [facility] Urobilinogen, UA <2 <2 mg/dL 12/08/2017 3:10 PM [facility] Bacteria, UA Occasional(A ) None /HPF 12/08/2017 3:10 PM [facility] RBC/HPF, UA 5(H) 0 - 3 /HPF 12/08/2017 3:10 PM [facility] WBC/HPF, UA 10(H) 0 - 5 /HPF 12/08/2017 3:10 PM [facility] Urine Squamous Epithelial Cells, UA 8(H) 0 - 5 /HPF 12/08/2017 3:10 PM [facility] Urine specimen (specimen) Collection / Unknown 12/08/2017 1:34 PM EST 12/08/2017 1:43 PM EST Marlene Belpre PUBLIC AREA ATTENDANT URINE ORDERABLES Final Res ult Performing Organization Address [facility]/ZIP Co de Phone Number [facility] [address] [place] [address] * Urine culture (12/08/2017 1:32 PM EST) Urine Culture, Routine Mixed Urine Culture 12/09/2017 11:07 AM EST [facility] Culture URINE SPECIMEN OBTAINED BY CLEAN CATCH PROCEDURE / Unknown Collection / Unknown 12/08/2017 1:32 PM EST 12/08/2017 1:36 PM EST Narrative [facility] - 12/09/2017 11:07 AM EST Mixed organisms present are consistent with contamination by urogenital tari and/or improper collection and storage. If repeat testing is clinically indicated, the recommendation is for recollection with prompt refrigeration and/or transport to the laboratory. Organism enumeration is not reliable and further workup of this culture is not indicated. Marlene GroveBelpre PUBLIC AREA ATTENDANT MICROBIOLOGY - GENERAL ORD ERABLES Final Result Performing Organization Address [facility] Co de Phone Number [facility] [address] [place] [address] documented in this encounter Visit Diagnoses Diagnosis Hematuria, unspecified type- Primary Abnormal GGT test Other nonspecific abnormal serum enzyme levels documented in this encounter Additional Health Concerns Assessment Noted Time PHQ-9 Depression Total Score: 2 01/23/20 16 9:00 AM EST documented as of this encounter Care Teams Radiologist Diagnostic Relationship Specialty Start Date End Date Glenn Alvarado DO [address] [facility] [address] [place] [address] PCP - General Family Medicine 05/31/17 documented as of this encounter
--- OUTSIDE RECORDS SUMMARY | 2025-08-09 00:38 | XMS_ITS | Encounter Summary ---
Author Organization [facility] Address [address] [place] [address] Care Team Providers Care Vertical Roll Operator Name Role Phone Glenn Alvarado DO Primary Care Provider Encounter Details Date Type Department Care Team (Late st Contact Info) Description 12/10/2017 Scanned Document NE Lizbet Per[address] [place], [place] [phone] Marlene Lopez, LORRAINE [address] [place] [phone] Social History Tobacco Use Types Packs/Day Years [...] documented as of this encounter Care Teams Vertical Roll Operator Relationship Specialty Start Date End Date Glenn Alvarado DO [address] [place] [phone] PCP - General Family Medicine 05/31/17 documented as of this encounter
--- OUTSIDE RECORDS SUMMARY | 2025-08-09 00:38 | XMS_ITS ---
Author Name [facility] Encounters Encounter Type Encounter Reason Primary Diagnosis Location Date Emergency Rash and other nonspecific skin eruption Rash and other nonspecific skin eruption [facility] 03/04/2025 Emergency Encounter for issue of repeat prescription Encounter for issue of repeat prescription [facility] 10/23/2023 Emergency Unspecified inju ry of head, initial encounter [facility] 02/07/2022 Emergency Alcohol abuse wi th intoxication, uncomplicated [facility] 12/02/2021 Emergency Headache, unspecified [facility] 11/27/2021 Emergency Unspecified asth ma, uncomplicated [facility] 11/04/2021 Emergency Unspecified inju ry of head, initial encounter [facility] 10/26/2021 Emergency Sprain of latera l collateral ligament of unspecified knee, initial encounter [facility] 10/22/2021 Emergency Alcohol use, unspecified with intoxication delirium [facility] 10/02/2021 Emergency Rash and other nonspecific skin eruption [facility] 09/25/2021 Ambulatory Impetiginization of other dermatoses [facility] 09/19/2021 Emergency Sprain of unspec ified site of left knee, initial encounter [facility] 09/18/2021 Emergency Knee pain [facility] 09/18/2021 Ambulatory Alcohol abuse, unspecified [facility] 09/07/2021 Care Team Organization Name Specialty Phone Email Start Date End Da te [facility] 03/05/2025 04[facility]03/2025 [facility] 03/22/2024 [facility] 12/13/2023 02/08/2025 [facility] 09/25/2023 025 [facility] 08/15/2023 024 [facility] 12/15/202208/23 [facility] 09/24/2022 [email or web address] [facility] 02/07/2022 02/09/20 [facility] 10/04/2007/11/[email or web address] [facility] 09/18/2021 02/07/2022 [facility] 09/07/2021 09/07/2021 [email or web address] 04/09/2016 04/09/2016
--- OUTSIDE RECORDS SUMMARY | 2025-08-09 00:38 | XMS_ITS | Clinical Summary ---
Author Organization [facility] Address [address] [place] [address] Care Team Providers Care Power Builder Developer Name Role Phone Unavailable Primary Care Provider Unavailabl e Source Comments PLEASE NOTE, if this patient is a minor, it may be UNLAWFUL to discuss sensitive information that is contained in these records (such as FAMILY PLANNING, MENTAL HEALTH or SUBSTANCE ABUSE) with the minor patient's parent or other person without the patient's specific authorization.[facility] Resolved Problems Problem Noted Date Diagnosed Date Resolved Date ERRONEOUS ENCOUNTER--DISREGARD 11/06/2020 11/21/2020 Other specified anxiety disorders 10/17/2020 11/21/2020 Cocaine use disorder, modera te ([facility]) 10/17/2020 11/21/2020 Family History Medical History Relation Name Comments No Known Problems Brother No Known Problems Daughter No Known Problems Father No Known Problems Maternal Aunt No Known Problems Maternal Grandfather No Known Problems Maternal Grandmother No Known Problems Maternal Uncle No Known Problems Mother No Known Problems Other No Known Problems Paternal Aunt No Known Problems Paternal Grandfather No Known Problems Paternal Grandmother No Known Problems Paternal Uncle No Known Problems Sister No Known Problems Son Relation Name Status Comments Brother Daughter Father Maternal Aunt Maternal Grandfather Maternal Grandmother Maternal Uncle Mother Other Paternal Aunt Paternal Grandfather Paternal Grandmother Paternal Uncle Sister Son Social History Tobacco Use Types Packs/Day Years Used Date Smoking Tobacco: Never Smokeless Tobacco: Never Alcohol Use Standard Drinks/Week Comments Yes 2 (1 standard drink = 0.6 oz pur e alcohol) Increased since last cahrges Social Connections Answer Date Recorded Connectedness 0 08/13/2024 Financial Resource Strain Answer Date R ecorded Financial Resource Strain 0 2019 Stress Answer Date Recorded Stress 0 09/26/2020 Physical Activity Answer Date Recorded Physical Activity 0 09/26/2020 Food Insecurity Answer Date Recorded Food 0 08/18/2024 Transportation Needs Answer Date Record ed Transportation 0 09/26/2020 Housing Stability Answer Date Recorded Housing 0 09/26/2020 Safety and Environment Answer Date Nadeem rded Safety 0 09/26/2020 Utilities Answer Date Recorded Utilities 0 09/26/2020 Employment Answer Date Recorded Stress 0 08/13/2024 Comments Unknown Sex and Gender Information Value Date Recorded Sex Assigned at Female 10/10/2020 9:26 AM PST Legal Sex Female 10:25 PM PST Gender Identity Female 10/10/2020 9:26 AM PST Sexual Orientation Not on file Plan of Treatment Not on file Insurance [place] MEDICAID Member Subscriber Plan / Payer ( fective 2020-Present) Name:Derrek Armenta Relation to Subscriber:Self Name:Derrek Armenta Payer ID:[id number] Group ID:Not on file Type:Medicaid Address: [place] [address] [place] MEDICAID DENTAL Member Subscriber Plan / Payer ( fective 2021-Present) Name:Derrek Armenta Relation to Subscriber:Self Name:Derrek Armenta Payer ID:[id number] Group ID:Not on file Type:Medicaid Address: [place] [id number]
--- OUTSIDE RECORDS SUMMARY | 2025-08-09 00:38 | XMS_ITS | Encounter Summary ---
Author Organization [facility] Address [address] [place] [address] Care Team Providers Care Negative Retoucher Name Role Phone Glenn Alvarado DO Primary Care Provider [phone] Encounter Details Date Type Department Care Team (Late st Contact Info) Description 11/06/2017 Scanned Document [facility] [address] [place], [place] [phone] Debbi Man APRN [address] [place] [address] Social History Tobacco Use Types [...] documented as of this encounter Care Teams Negative Retoucher Relationship Specialty Start Date End Date Glenn Alvarado DO [address] [place] [phone] PCP - General Family Medicine 05/31/17 documented as of this encounter
--- OUTSIDE RECORDS SUMMARY | 2025-08-09 00:38 | XMS_ITS | Clinical Summary ---
Author Organization [facility] Address [address] [place] [address] Care Team Providers Care Ocean Fishing Guide Name Role Phone Mandy Rosales Primary Care Provider [phone] Allergies Active Allergy Reactions Criticality Noted Date Comments Apple Anaphylaxis,Swelling ,Ashtyn rtness of breath High 11/22/2017 Most fresh fruits cause similar reactions Banana Swelling,Shortness o f breath High 11/22/2017 Most fresh fruits cause similar reactions Medications albuterol 2.5 mg /3 mL (0.083 %) nebulizer solution albuterol sulfate 2.5 mg/3 mL (0.083 %) solution for nebulization TAKE 3 MLS BY NEBULIZATION EVERY 4 (FOUR) HOURS NEEDED FOR SHORTNESS OF BREATH OR WHEEZING. 0 Active albuterol HFA (ProAir HFA) 90 mcg/actuation inhaler ProAir HFA 90 mcg/actuation aerosol inhaler INHALE 2 PUFFS BY MOUTH EVERY 6 HOURS 0 Active budesonide-form oteroL (SYMBICORT) 160-4.5 mcg/actuation inhaler Inhale 2 puffs 2 times daily. 1 Active famotidine (PEPCID) tablet Take 20 mg by mouth 2 times daily. 1 Active ibuprofen 800 mg tablet ibuprofen 800 mg tablet Active insulin lispro (HumaLOG KwikPen Insulin) 100 unit/mL insulin pen Humalog KwikPen (U-100) Insulin 100 unit/mL subcutaneous Active omeprazole (PriLOSEC) 40 mg capsule Take by mouth. 1 Active predniSONE (DELTASONE) 20 mg tablet TAKE 2 TABLETS (40 MG TOTAL) BY MOUTH DAILY. WITH FOOD. 1 Active Symbicort 80-4.5 mcg/actuation inhaler 1 Active chlorhexidine (PERIDEX) 0.12 % solution RINSE AND GARGLE 15 ML BY MOUTH TWICE DAILY FOR 16 DAYS 1 Active Social History Tobacco Use Types Packs/Day Years Used Date Smoking Tobacco: Never Assessed Comments Unknown Sex and Gender Information Value Date Recorded Sex Assigned at Not on file Legal Sex Female 5:00 PM EDT Gender Identity Not on file Sexual Orientation Not on file Plan of Treatment Health Maintenance Due Date Last Done Comments HIV Screening 1990 Hepatitis B Vaccines (1 of 3 - 19+ 3-dose series) 02/13/2008 Pap Smear 01/16/2024 01/16/2021 COVID-19 Vaccine (1 - 2023-2 5 season) 2025 Influenza Vaccine (#1) 2025 10/29/2017 Cervical Cancer Screening 01/16/2026 HPV/Cotest 01/16/2026 01/16/2021 DTaP,Tdap,and Td Vaccines (2 - Td or Tdap) 10/29/2027 10/29/2017 Zoster Vaccines (1 of 2) 2039 HPV Vaccines Aged Out No longer eligi ble based on patient's age to complete this topic Hepatitis A Vaccines Aged Out No long er eligible based on patient's age to complete this topic MMR Vaccines Aged Out No longer eligi ble based on patient's age to complete this topic Meningococcal Vaccine Aged Out No memo kameron eligible based on patient's age to complete this topic Pneumococcal Vaccine: Pediat rics (0 to 5 Years) and At-Risk Patients (6 to 49 Years) Aged Out No longer eligi ble based on patient's age to complete this topic Insurance MEDICAID [facility] * Guarantor: ISABELLA GRANT Account Type Relation to Patient Date of Phone Billing Address [employer] [facility] [employer] 1990 [place] [address] [place] [address] Care Teams Ocean Fishing Guide Relationship Specialty Start Date End Date Mandy Rosales [address] [place] [address] PCP - General Family Medicine 08/05/21
[2025-08-09 01:03] VITALS: BP 128/62; PULSE 95; RESP 19; TEMP 36.6; O2SAT 100
--- NOTE | 2025-08-09 01:03 | PC.NURSE ---
Ortho boot applied, Pt tolerated well. Ambulated independently with steady gait.
== END 2025-08-09 02:00 | disposition home or self-care (01) ==
PROVIDERS: Emergency Provider Student in an Organized Health Care Education/Training Program
DX: S92.402A Displaced unspecified fracture of left great toe, initial encounter for closed fracture (principal); S91.202A Unspecified open wound of left great toe with damage to nail, initial encounter; S90.32XA Contusion of left foot, initial encounter; M79.675 Pain in left toe(s); X58.XXXA Exposure to other specified factors, initial encounter; Y93.9 Activity, unspecified; Y92.9 Unspecified place or not applicable; Y99.8 Other external cause status
CPT/HCPCS: 12001; 64450; 73660; 99282; 99283; 99284; J2003

== ENCOUNTER → 2025-08-09 00:45 | Outpatient (BNV) | payer MEDICAID, SELFPAY | PROVIDERS: Emergency Provider Student in an Organized Health Care Education/Training Program; Visit Provider Radiology Diagnostic Radiology | DX: S99.922A Unspecified injury of left foot, initial encounter (principal) | CPT/HCPCS: 73660 ==

== ENCOUNTER 2025-08-12 18:42 | Emergency (ER) | payer MEDICAID, SELFPAY ==
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
[2025-08-12 18:47] VITALS: BP 143/93; RESP 20; TEMP 36.6; O2SAT 96; BMI 46.7
--- NOTE | 2025-08-12 19:23 | PC.NURSE ---
T/w went to call patient back to room, informed by Ariana (registration staff) patient had left the ED and stated they would return via ambulance. biological inspector Kathy made aware. Patient [id number]
--- OUTSIDE RECORDS SUMMARY | 2025-08-12 19:26 | XMS_ITS | Encounter Summary ---
Author Organization [facility] Address [address] [place] [address] Care Team Providers Care Gynecology Teacher Name Role Phone Glenn Alvarado DO Primary Care Provider [phone] Encounter Details Date Type Department Care Team (Late st Contact Info) Description 12/10/2017 Scanned Document NE Lizbet Szym[address]ki [address] [place], [place] [phone] Marlene Lopez, LORRAINE [address] [place] [phone] Social History Tobacco Use Types Packs/Day Years [...] documented as of this encounter Care Teams Gynecology Teacher Relationship Specialty Start Date End Date Glenn Alvarado DO [address] [place] [phone] PCP - General Family Medicine 05/31/17 documented as of this encounter
--- OUTSIDE RECORDS SUMMARY | 2025-08-12 19:26 | XMS_ITS | Encounter Summary ---
Author Organization [facility] Address [address] [place] [phone] Care Team Providers Care Supervisor Engine Repair Name Role Phone Glenn Alvarado DO Primary Care Provider [phone] Encounter Details Date Type Department Care Team (Late st Contact Info) Description 11/22/2017 Documentation Gynecology [address] [place] [phone] Idania Rhodes MD Social History Tobacco Use [...] documented as of this encounter Care Teams Supervisor Engine Repair Relationship Specialty Start Date End Date Glenn Alvarado DO [address] [place] [address] PCP - General Family Medicine 05/31/17 documented as of this encounter
--- OUTSIDE RECORDS SUMMARY | 2025-08-12 19:26 | XMS_ITS | Clinical Summary ---
Author Organization [address] Address [address] [place] [address] Care Team Providers Care Erecting Engineer Name Role Phone Glenn Alvarado DO Primary Care Provider [phone] Allergies Active Allergy Reactions Criticality Noted Date [...] years) (1 of 2 - PCV) 02/13/2008 Influenza vaccine 06/23/2025 10/29/2017 Covid-19 vaccine series (2 - season) 2025 11/27/2021 Cervical cancer screening 01/16/2026 01/16/2021 Tetanus adult [...] Screen Negative Negative 11/03/2017 3:01 PM EST [facility] Comment: If clinical concern for HIV infection remains, then re-screen at an appropriate interval. Patients may be non-reactive if p24 antigen or HIV antibodies have not yet developed. Blood specimen (specimen) Venipuncture / Unknown 11/03/2017 1:11 PM EST 11/03/2017 1:32 PM EST us Debbi Man [employer] SALESPERSON LAB BLOOD ORDERABLES Final Resul t [facility] [address] [place] [address] from Last 3 Months or Most Recently [...] 2:09 AM 11/25/2017 10:51 PM Care Teams Erecting Engineer Relationship Specialty Start Date End Date Glenn Alvarado DO 4 [facility] [address] [place] [address] PCP - General Family Medicine 05/31/17
--- OUTSIDE RECORDS SUMMARY | 2025-08-12 19:26 | XMS_ITS | Encounter Summary ---
Author Organization [facility] Address [address] [place] [address] Care Team Providers Care Garbage Worker Name Role Phone Glenn Alvarado DO Primary Care Provider Encounter Details Date Type Department Care Team (Late st Contact Info) Description 12/02/2017 Lab Requisition [place] [facility] Laboratory Specimens [address] [place] [phone] Debbi Man APRN [address] [place] [phone] Abscess of bursa of right hip Social [...] Date/Time Associated Diagnosis Comments DEEP WOUND CULTURE ([facility] LMW Y[facility]) Routine 12/02/2017 11:30 AM EST Abscess of bursa of right hip documented in this encounter Results * (ABNORMAL) Deep wound culture ([facility] LMW YH) (12/02/2017 11:30 AM EST) Deep Wound Culture Multiple organisms recovered in addition to those reported. Further testing not routinely performed. Clinical correlation required. 12/04/2017 1:53 PM EST [facility] Deep Wound Culture 1+ Actinomyces neuii(A) 12/04/2017 1:53 PM EST [facility] Comment: The method used for this identification was matrix assisted laser desorption or MALDI. The test performance characteristics were determined by [facility]. This particular genus species identification has not been cleared or approved by the FDA. This test is for clinical purposes and should not be regarded as investigational or research Gram Stain 3+ WBC's 12/04/2017 1:53 PM EST [facility] Gram Stain 1+ Epithelial Cells 12/04/2017 1:53 PM EST [facility] Gram Stain 1+ Gram negative rods 12/04/2017 1:53 PM EST [facility] Gram Stain 1+ Gram positive cocci in pairs 12/04/2017 1:53 PM EST [facility] Culture SWAB FROM DEEP WOUND / Unknown 12/02/2017 11:30 AM EST 12/02/2017 4:42 PM EST Narrative [facility] - 12/04/2017 1:53 PM EST Routinely screened for anaerobes; reported if isolated. Sensitivity testing not performed on anaerobes. Organism Antibiotic Method Susceptibility Actinomyces neuii * * Debbi Man APRN MICROBIOLOGY - GENERAL ORDERABLE S Final Result [facility] [address] [place] [address] documented in this encounter Visit Diagnoses Diagnosis Abscess of bursa of right hip Other disorders of synovium, tendon, and bursa documented in this encounter Additional Health Concerns Assessment Noted Time PHQ-9 Depression Total Score: 2 01/23/20 16 9:00 AM EST documented as of this encounter Care Teams Garbage Worker Relationship Specialty Start Date End Date Glenn Alvarado DO [address] [facility] [address] [place] [address] PCP - General Family Medicine 05/31/17 documented as of this encounter
--- OUTSIDE RECORDS SUMMARY | 2025-08-12 19:26 | XMS_ITS | Encounter Summary ---
Author Organization [facility] and [facility] Address [address] [place] [address] Care Team Providers Care Phototypesetting Equipment Monitor Name Role Phone Glenn Alvarado Primary Care Provider Encounter Details Date Type Department Care Team (Latest Contact Info) Description 12/08/2017 Transcribed Orders [facility] DRAW STATION [facility] [address] [place], [place] [phone] Marlene Lopez, TUBE ROOM CASHIER [address] [place] [phone] Hematuria, unspecified type (Primary Dx); Abnormal GGT [...] Color, UA Yellow Yellow 12/08/2017 3:10 PM [facility] Clarity, UA Cloudy(A) Clear 12/08/2017 3:10 PM [facility] pH, UA 6.5 4.6 - 7.4 12/08/2017 3:10 PM [facility] Specific [place], UA 1.017 1.003 - 1.035 12/08/2017 3:10 PM [facility] Protein, UA 1+(A) Negative mg/dL 12/08/2017 3:10 PM [facility] Glucose, UA Negative Negative mg/dL 12/08/2017 3:10 PM [facility] Nitrite, UA Negative Negative 12/08/2017 3:10 PM [facility] Leukocytes, UA Moderate(A) Negative Monalisa/uL 12/08/2017 3:10 PM [facility] Blood, UA Moderate(A) Negative mg/dL 12/08/2017 3:10 PM [facility] Ketones, UA Negative Negative mg/dL 12/08/2017 3:10 PM [facility] Bilirubin, UA Negative Negative mg/dL 12/08/2017 3:10 PM [facility] Urobilinogen, UA <2 <2 mg/dL 12/08/2017 3:10 PM [facility] Bacteria, UA Occasional(A ) None /HPF 12/08/2017 3:10 PM [facility] RBC/HPF, UA 5(H) 0 - 3 /HPF 12/08/2017 3:10 PM [facility] WBC/HPF, UA 10(H) 0 - 5 /HPF 12/08/2017 3:10 PM [facility] Urine Squamous Epithelial Cells, UA 8(H) 0 - 5 /HPF 12/08/2017 3:10 PM [facility] Urine specimen (specimen) Collection / Unknown 12/08/2017 1:34 PM EST 12/08/2017 1:43 PM EST Marlene Sneads TUBE ROOM CASHIER URINE ORDERABLES Final Res ult Performing Organization Address [facility]/ZIP Co de Phone Number [facility] [address] [place] [address] * Urine culture (12/08/2017 1:32 PM EST) Urine Culture, Routine Mixed Urine Culture 12/09/2017 11:07 AM EST [facility] Culture URINE SPECIMEN OBTAINED BY CLEAN CATCH PROCEDURE / Unknown Collection / Unknown 12/08/2017 1:32 PM EST 12/08/2017 1:36 PM EST Narrative [facility] - 12/09/2017 11:07 AM EST Mixed organisms present are consistent with contamination by urogenital tari and/or improper collection and storage. If repeat testing is clinically indicated, the recommendation is for recollection with prompt refrigeration and/or transport to the laboratory. Organism enumeration is not reliable and further workup of this culture is not indicated. Marlene GroveSneads TUBE ROOM CASHIER MICROBIOLOGY - GENERAL ORD ERABLES Final Result Performing Organization Address [facility] Co de Phone Number [facility] [address] [place] [address] documented in this encounter Visit Diagnoses Diagnosis Hematuria, unspecified type- Primary Abnormal GGT test Other nonspecific abnormal serum enzyme levels documented in this encounter Additional Health Concerns Assessment Noted Time PHQ-9 Depression Total Score: 2 01/23/20 16 9:00 AM EST documented as of this encounter Care Teams Phototypesetting Equipment Monitor Relationship Specialty Start Date End Date Glenn Alvarado DO [address] [facility] [address] [place] [address] PCP - General Family Medicine 05/31/17 documented as of this encounter
--- OUTSIDE RECORDS SUMMARY | 2025-08-12 19:26 | XMS_ITS | Encounter Summary ---
Author Organization [facility] and [facility] Address [address] [place] [address] Care Team Providers Care Structural Steel Worker Helper Name Role Phone Glenn Alvarado Primary Care Provider [phone] Encounter Details Date Type Department Care Team (Latest Contact Info) Description 11/03/[address] [facility] DRAW STATION [facility] [address] [place], [place] [phone] Debbi Man, LORRAINE [address] [place] [phone] Encounter for supervision of normal in second [...] Associated Diagnosis Comments ZZZC.TRACHOMATIS / N.GONORRHOEAE, NAAT ([facility]) Routine 11/03/2017 1:17 PM EST Encounter for [...] encounter Results * C.trachomatis / N.gonorrhoeae, PCR ([facility]) (11/03/2017 1:17 PM EST) Chlamydia DNA Probe Negative Negative 11/03/2017 3:13 PM EST [facility] Neisseria gonorrhoeae, DNA Probe Negative Negative 11/03/2017 3:13 PM EST [facility] Culture URINE SPECIMEN / Unknown Venipuncture / Unknown 11/03/2017 1:17 PM EST 11/03/2017 1:38 PM EST Debbi Man APRN MICROBIOLOGY - GENERAL ORDERABLE S Final Result Performing Organization Address [facility] [place] [address] * Urine culture (11/03/2017 1:17 PM EST) Pathologist [facility] Urine Culture, Routine Less than 10,000 CFU/mL. Clinical significance is unlikely for organism(s) present in quantities of less than 10,000 CFU/mL. 11/04/2017 9:02 AM EST [facility] Culture URINE SPECIMEN OBTAINED BY CLEAN CATCH PROCEDURE / Unknown Venipuncture / Unknown 11/03/2017 1:17 PM EST 11/03/2017 2:05 PM EST Debbi Man APRN MICROBIOLOGY - GENERAL ORDERABLE S Final Result Performing Organization Address [facility] Co de Phone Number [address] [address] * (ABNORMAL) Urinalysis with microscopic (GH L LMW Q) (11/03/2017 1:17 PM EST) Color, UA Yellow Yellow 11/03/2017 1:43 PM EST [facility] Clarity, UA Clear Clear 11/03/2017 1:43 PM EST [facility] pH, UA 6.5 4.6 - 7.4 11/03/2017 1:43 PM [facility] Specific [place], UA 1.015 1.003 - 1.035 11/03/2017 1:43 PM [facility] Protein, UA Trace(A) Negative mg/dL 11/03/2017 1:43 PM [facility] Glucose, UA 4+(A) Negative mg/dL 11/03/2017 1:43 PM [facility] Nitrite, UA Negative Negative 11/03/2017 1:43 PM [facility] Leukocytes, UA Negative Negative Monalisa/uL 11/03/2017 1:43 PM [facility] Blood, UA Negative Negative mg/dL 11/03/2017 1:43 PM [facility] Ketones, UA Negative Negative mg/dL 11/03/2017 1:43 PM [facility] Bilirubin, UA Negative Negative mg/dL 11/03/2017 1:43 PM [facility] Urobilinogen, UA <2 <2 mg/dL 11/03/2017 1:43 PM [facility] RBC/HPF, UA 2 0 - 3 /HPF 11/03/2017 1:43 PM [facility] WBC/HPF, UA 1 0 - 5 /HPF 11/03/2017 1:43 PM [facility] Urine Squamous Epithelial Cells, UA 4 0 - 5 /HPF 11/03/2017 1:43 PM [facility] Urine specimen (specimen) Venipuncture / Unknown 11/03/2017 1:17 PM EST 11/03/2017 1:34 PM EST us Debbi Man APRN URINE ORDERABLES Final Result [facility] [address] [place] [address] * (ABNORMAL) CBC auto differential (11/03/2017 1:11 PM EST) WBC 9.52 4.00 - 10.00 x1000/ L 11/03/2017 1:38 PM [facility] RBC 3.96(L) 4.00 - 5.20 M/ L 11/03/2017 1:38 PM [facility] Hemoglobin 11.6 11.0 - 15.0 g/dL 11/03/2017 1:38 PM [facility] Hematocrit 34.3 34.0 - 45.0 % 11/03/2017 1:38 PM [facility] MCV 86.6 79.0 - 99.0 fL 11/03/2017 1:38 PM [facility] MCH 29.3 27 - 33 pg 11/03/2017 1:[address] [facility] MCHC 33.8 32.0 - 36.0 g/dL 11/03/2017 1:[address] [facility] RDW-CV 13.2 11.5 - 14.5 % 11/03/2017 1:[address] [facility] Platelets 288 140 - 400 x1000/ L 11/03/2017 1:[address] [facility] MPV 9.4 7.5 - 11.5 fL 11/03/2017 1:38 PM [facility] Neutrophils 71.3(H) 36.0 - 66.0 % 11/03/2017 1:[address] [facility] Lymphocytes 19.3(L) 25.0 - 45.0 % 11/03/2017 1:38 PM [facility] Monocytes 4.3 0.0 - 12.0 % 11/03/2017 1:38 PM [facility] Eosinophils 4.6(H) 0.0 - 4.0 % 11/03/2017 1:38 PM [facility] Basophil 0.3 0.0 - 3.0 % 11/03/2017 1:[address] [facility] Immature Granulocytes 0.2 0.0 - 1.0 % 11/03/2017 1:38 PM [facility] nRBC 0.0 0.0 - 5.0 % 11/03/2017 1:38 PM [facility] ANC (Abs Neutrophil Count) 6.78(H) 1.40 - 6.60 x 1000/ L 11/03/2017 1:38 PM [facility] Absolute Lymphocyte Count 1.84 1.00 - 4.50 x 1000/ L 11/03/2017 1:38 PM EST [facility] Monocyte Absolute Count 0.41 0.00 - 1.20 x 1000/ L 11/03/2017 1:38 PM EST [facility] Eosinophil Absolute Count 0.44 0.00 - 0.45 x 1000/ L 11/03/2017 1:38 PM EST [facility] Basophil Absolute Count 0.03 0.0 - 0.3 x 1000/ L 11/03/2017 1:38 PM EST [facility] Absolute Immature Granulocyte Count 0.02 0.00 - 0.10 x 1000/ L 11/03/2017 1:38 PM EST [facility] Blood specimen (specimen) Venipuncture / Unknown 11/03/2017 1:11 PM EST 11/03/2017 1:34 PM EST Debbi Man APRN LAB BLOOD ORDERABLES Final Resul t Performing Organization Address [facility] [place] [address] * (ABNORMAL) 1 Hour glucose challenge ( GH LMW) (11/03/2017 1:11 PM EST) Glucose Challenge 1 Hour 190(H) 51 - 140 mg/dL 11/03/2017 2:00 PM EST [facility] Blood specimen (specimen) Venipuncture / Unknown 11/03/2017 1:11 PM EST 11/03/2017 1:32 PM EST Narrative [facility] - 11/03/2017 2:00 PM EST Per [place] [employer] guidelines, a screening value of greater than 140 mg/dL may indicate the need for a diagnostic 3 hr OGTT (100 mg load). Debbi Man APRN LAB BLOOD ORDERABLES Final Resul t Performing Organization Address City/[facility]/ZIP Co de Phone Number [facility] [address] [place] [address] * Hemoglobinopathy evaluation (11/03/2017 1:11 PM EST) Hemoglobin A 97.3 94.0 - 100.0 % 11/06/2017 2:19 PM EST [facility] Comment: NORMAL Hgb A and A2. There is no evidence for any abnormal hemoglobin; for example, the most common abnormal hemoglobins are not present. Results have been REVIEWED BY TECHNOLOGIST ONLY. Hemoglobin A2 2.7 0.0 - 4.0 % 11/06/2017 2:19 PM EST [facility] Hemoglobin F <0.1 0.0 - 2.0 % 11/06/2017 2:19 PM EST [facility] Blood specimen (specimen) Venipuncture / Unknown 11/03/2017 1:11 PM EST 11/03/2017 1:32 PM EST Debbi Man [facility] LAB BLOOD ORDERABLES Final Resul t Performing Organization Address City/[facility]/ZIP Co de Phone Number [facility] [address] [place] [address] * Hepatitis B surface antigen (BH GH L LMW YH) (11/03/2017 1:11 PM EST) Hepatitis B Surfac Antigen Negative Negative 11/03/2017 2:27 PM EST [facility] Blood specimen (specimen) Venipuncture / Unknown 11/03/2017 1:11 PM EST 11/03/2017 1:32 PM EST Debbi Man [employer] LAB BLOOD ORDERABLES Final Resul t [facility] [address] [place] [address] * Rubella antibody, IgG (BH GH L LMW YH) (11/03/2017 1:11 PM EST) Rubella Antibody, IgG Positive Positive 11/03/2017 2:27 PM EST [facility] Rubella Antibody, IgG Interval 28.8 >=10.0 Index 11/03/2017 2:27 PM EST [facility] Blood specimen (specimen) Venipuncture / Unknown 11/03/2017 1:11 PM EST 11/03/2017 1:32 PM EST Narrative [facility] - 11/03/2017 2:27 PM EST Reference [...] of other diagnostic testing, and medical judgment. [employer] LAB BLOOD ORDERABLES Final Resul t Performing Organization Address [facility] [place] [address] * HIV-1/HIV-2 antibody/antigen screen w/reflex ( GH LMW YH) (11/03/2017 1:11 PM EST) [facility] Signature HIV 1 and 2 Antibody/Antige n Screen Negative Negative 11/03/2017 3:01 PM EST [facility] Comment: If clinical concern for HIV infection remains, then re-screen at an appropriate interval. Patients may be non-reactive if p24 antigen or HIV antibodies have not yet developed. Blood specimen (specimen) Venipuncture / Unknown 11/03/2017 1:11 PM EST 11/03/2017 1:32 PM EST [employer] LAB BLOOD ORDERABLES Final Resul t Performing Organization Address City/[facility]/ZIP Co de Phone Number [facility] [address] [place] [address] * ABO/Rh (11/03/2017 1:11 PM EST) ABORh A POSITIVE 11/03/2017 2:13 PM EST [facility] BLOOD [facility] Blood specimen (specimen) Venipuncture / Unknown 11/03/2017 1:11 PM EST 11/03/2017 1:21 PM EST [facility] - 11/03/2017 2:13 PM EST [place] [facility], [address] [place], [place] [address] - Lab number [id number] [facility] BLOOD BANK TEST ORDERABLES Final Result Performing Organization Address City/[facility] Co de Phone Number [address] [phone] * Antibody screen (BH GH L LMW YH) (11/03/2017 1:11 PM EST) Pathologist [facility] Antibody Screen NEGATIVE 11/03/2017 2:12 PM EST [facility] Blood specimen (specimen) Venipuncture / Unknown 11/03/2017 1:11 PM EST 11/03/2017 1:21 PM EST [facility] - 11/03/2017 2:12 PM EST [place] [facility], [address] [place], [place] [address] - Lab number [id number] [facility] BLOOD BANK TEST ORDERABLES Final Result Performing Organization Address City/[facility]/ZIP Co de Phone Number [address] [phone] * Treponema pallidum (syphilis) antibody w/reflex (11/03/2017 1:11 PM EST) Pathologist [facility] Treponema pallidum Ab Index <0.100 <0.9 Index 11/03/2017 3:54 PM EST [facility] Treponema pallidum Antibody Total, Serum Non-Reacti ve Non-Reacti ve 11/03/2017 3:54 PM EST [facility] Blood specimen (specimen) Venipuncture / Unknown 11/03/2017 1:11 PM EST 11/03/2017 1:32 PM EST us Debbi Man APRN LAB BLOOD ORDERABLES Final Resul t [facility] [address] [place] [address] documented in this encounter Visit Diagnoses Diagnosis Encounter for supervision of normal in second trimester, unspecified (HC CODE)- Primary documented in this encounter Additional Health Concerns Assessment Noted Time PHQ-9 Depression Total Score: 2 01/23/20 16 9:00 AM EST documented as of this encounter Care Teams Structural Steel Worker Helper Relationship Specialty Start Date End Date Glenn Alvarado DO [address] [place] [address] PCP - General Family Medicine 05/31/17 documented as of this encounter
--- OUTSIDE RECORDS SUMMARY | 2025-08-12 19:26 | XMS_ITS | Encounter Summary ---
Author Organization [facility] ou and Home Health Address [address] [place] [address] Care Team Providers Care Manager Costing Name Role Phone Glenn Alvarado DO Primary Care Provider [phone] Encounter Details Date Type Department Care Team (Late st Contact Info) Description 11/06/2017 Scanned Document [facility] End[facility] [address] [place], [place] [phone] Debbi Man APRN [address] [place] [address] Social History Tobacco Use Types [...] documented as of this encounter Care Teams Manager Costing Relationship Specialty Start Date End Date Glenn Alvarado DO [address] [place] [phone] PCP - General Family Medicine 05/31/17 documented as of this encounter
--- OUTSIDE RECORDS SUMMARY | 2025-08-12 19:26 | XMS_ITS | Clinical Summary ---
Author Organization [facility] Address [address] [place] [address] Care Team Providers Care Toe Stapler Name Role Phone Unavailable Primary Care Provider [...] 10/17/2020 11/21/2020 Cocaine use disorder, modera te ([facility]) 10/17/2020 11/21/2020 Family History Medical History Relation [...] ID:[id number] Group ID:Not on file Type:Medicaid Address: [place] [address] [place] Subscriber Plan / Payer ( fective 2021-Present) Name:Derrek Armenta Relation to Subscriber:Self Name:Derrek Armenta Payer ID:[id number] Group ID:Not on file Type:Medicaid Address: [place] [id number]
--- OUTSIDE RECORDS SUMMARY | 2025-08-12 19:26 | XMS_ITS | Encounter Summary ---
Author Organization [facility] ou and Home Health Address [address] [place] [address] Care Team Providers Care Wood Milling Machine Tender Name Role Phone Glenn Alvarado DO Primary Care Provider [phone] Encounter Details Date Type Department Care Team (Late st Contact Info) Description 11/06/2017 Scanned Document [facility] [place] [address] [place], [place] [phone] Debbi Man APRN [address] [place] [address] Social History Tobacco Use Types [...] documented as of this encounter Care Teams Wood Milling Machine Tender Relationship Specialty Start Date End Date Glenn Alvarado DO [address] [place] [phone] PCP - General Family Medicine 05/31/17 documented as of this encounter
--- OUTSIDE RECORDS SUMMARY | 2025-08-12 19:26 | XMS_ITS | Clinical Summary ---
Author Organization [facility] Address [address] [place] [address] Care Team Providers Care Bank Clerk Name Role Phone Mandy Rosales Primary Care Provider [phone] Allergies Active Allergy Reactions Criticality Noted Date [...] of 3 - 19+ 3-dose series) 02/13/2008 HPV Vaccines (1 - 3-dose SCD M series) 02/13/2016 Pap Smear 01/16/2024 01/16/2021 COVID-19 Vaccine (1 - 2023-2 5 season) 2025 Influenza Vaccine (#1) 2025 10/29/2017 Cervical Cancer Screening 01/16/2026 HPV/Cotest 01/16/2026 01/16/2021 DTaP,Tdap,and Td Vaccines (2 - Td or Tdap) 10/29/2027 10/29/2017 Zoster Vaccines (1 of 2) 2039 Hepatitis A Vaccines Aged Out No long [...] age to complete this topic Insurance MEDICAID ERUM Aragon * Guarantor: ISABELLA GRANT Account Type Relation to Patient Date of Phone Billing Address [employer] [facility] [address] [place] [id number] [place] [address] Care Teams Bank Clerk Relationship Specialty Start Date End Date Mandy Rosales [address] [place] [address] PCP - General Family Medicine 08/05/21
== END 2025-08-12 19:20 | disposition left against medical advice (07) ==
PROVIDERS: Emergency Provider Emergency Medicine
DX: F10.129 Alcohol abuse with intoxication, unspecified (principal); Z53.21 Procedure and treatment not carried out due to patient leaving prior to being seen by health care provider
CPT/HCPCS: 99281